=== PATIENT | male | born 2000 | race Caucasian/White ===

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

== ENCOUNTER → 2021-10-03 | Emergency (ER) | payer OTHER, BC ==
[~2021-10-03] VITALS: Ht 182 cm; Wt 81.0 kg
[~2021-10-03] MED LIST: AMOX-358 PO
--- NOTE | 2021-10-03 11:57 | ED Upper Extremity ---
General Chief Complaint: Laceration Stated Complaint: L ARM LAC Nursing Triage Note: patient states left inner wrist laceration occurred while at work. dressing applied, not bleeding at time of arrival. Source: patient Exam Limitations: no limitations History of Present Illness Date Seen by Provider: Oct 03, 2021 Time Seen by Provider: 11:54 Initial Comments Patient is a 21-year-old male presents ED with left wrist injury and laceration. Patient states he works at [employer] when a piece of steel slipped causing a laceration to the left volar wrist. Immediate bleeding. This occurred 1 hour ago. Up-to-date on his tetanus within the past 5 years. Normal active range of motion of his digits. Was sent to the ED for further evaluation. Allergies and Home Medications Allergies Coded Allergies: No Known Drug Allergies (Unverified , 07/21/19) Patient Home Medication List Home Medication List Reviewed: Yes Amoxicillin/Potassium Clav (Augmentin 875-125 Tablet) 1 Each Tablet, 1 EACH PO BID Prescribed by: TOMEKA ROWLAND on 07/21/192111 Review of Systems Constitutional: No chills, No diaphoresis EENTM: No ear pain, No double vision Respiratory: No cough, No dyspnea on exertion Cardiovascular: No chest pain, No edema Gastrointestinal: No abdominal pain, No diarrhea, No nausea, No vomiting Genitourinary: No decreased output, No discharge Musculoskeletal: No back pain, No joint pain, No muscle pain Skin: other (laceration) All Other Systems Reviewed Negative Unless Noted: Yes Past Pifkxwf-Mvusjh-Hsemhd Hx Patient Social History Tobacco Use?: No Use of E-Cig and/or Vaping dev: No Substance use?: No Alcohol Use?: Yes Alcohol type: Beer Alcohol Frequency: Daily Immunizations Up To Date Tetanus Booster (TDap): Unknown PED Vaccines UTD: No First/Initial COVID19 Vaccinat: n/a Seasonal Allergies Seasonal Allergies: No Past Medical History Surgeries: Yes (WISDOM TEETH EXTRACTION) Respiratory: No Cardiac: No Neurological: No Genitourinary: No Gastrointestinal: No Musculoskeletal: No Endocrine: No HEENT: No Cancer: No ADD/ADHD Integumentary: No Blood Disorders: No Adverse Reaction/Blood Tranf: No Physical Exam Vital Signs Vital Signs - First Documented 10/03/21 11:31 Temp 36.7 Pulse 64 Resp 18 B/P (MAP) 128/86 (100) Pulse Ox 96 O2 Delivery Room Air Capillary Refill : Less Than 3 Seconds Height, Weight, BMI Height: '" Weight: lbs. oz. kg; 24.00 BMI Method: General Appearance: WD/WN, no apparent distress HEENT: PERRL/EOMI, normal ENT inspection, TMs normal, pharynx normal Neck: non-tender, full range of motion, supple, normal inspection Cardiovascular: regular rate, rhythm, no edema, no gallop, no JVD Respiratory: chest non-tender, lungs clear, normal breath sounds, no respiratory distress, no accessory muscle use Gastrointestinal: normal bowel sounds, non tender Back: normal inspection, no CVA tenderness Shoulder: normal inspection, non-tender, no evidence of injury, normal ROM Elbow/Forearm: normal inspection, non-tender, no evidence of injury Wrist: Yes normal ROM Hand: normal inspection, non-tender, normal ROM Neurologic/Tendon: normal sensation, normal motor functions, normal tendon functions 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 Partial tendon involvement) Procedures/Interventions Wound Location: Upper Extremities Other Wound Location wrist Wound Length (cm): 3 Wound's Depth, Shape: sub Q, tendon Wound Explored: clean Irrigated w/ Saline (ccs): 300 Betadine Prep?: Yes Anesthesia: 1% Lidocaine Volume Anesthetic (ccs): 5 Suture: Ethlion Suture Size: 4-0, 5-0 Number of Sutures: 6 Layer Closure?: 1 Sterile Dressing Applied?: Yes Progress/Results/Core Measures Results/Orders Vital Signs/I&O 10/03/21 11:31 Temp 36.7 Pulse 64 Resp 18 B/P (MAP) 128/86 (100) Pulse Ox 96 O2 Delivery Room Air Blood Pressure Mean: 100 Departure Communication (PCP) Extensive irrigation of the laceration to the left volar wrist. Appears to be moving his wrist and digits without difficulties. Does have a partial tendon injury noted on the volar wrist concerning that this may be the palmaris longus. No vascular or muscle belly involvement. stressed with patient importance of follow-up with hand and wrist specialist for further evaluation as patient may need tendon repair. This was provided in discharge. Patient was placed in a Velcro wrist to limit movement and allow healing of the laceration and tendon so this does not further worsen. If any surgical intervention may be needed this would be follow-up with hand specialist. Patient is up-to-date his tetanus within the past 5 years. Discussed topical Neosporin and wound care. He is right-handed. Impression Primary Impression: Laceration Disposition: HOME, SELF-CARE Condition: Stable Departure-Patient Inst. Decision time for Depature: 11:55 Referrals: KACEY EVERETT,LOCAL PHYSICIAN (PCP) Primary Care Physician Patient Instructions: Laceration Repair With Stitches ED Add. Discharge Instructions: Remove sutures in 10 days. Neosporin topical twice a day with wound dressings daily. Recommend excessive movement of the left wrist to allow healing. Follow-up with hand specialist for further evaluation for tendon injury All discharge instructions reviewed with patient and/or family. Voiced understanding. DANI PIERSON Oct 03, 2021 11:57
[2021-10-03 12:30] VITALS: BP 128/86
== END ==
LOC: EDUNIT# 11:01 → ER 11:02
DX: S61.512A Laceration without foreign body of left wrist, initial encounter (principal); W45.8XXA Other foreign body or object entering through skin, initial encounter; Y92.59 Other trade areas as the place of occurrence of the external cause; Y99.0 Civilian activity done for income or pay
CPT/HCPCS: 12031